=== PATIENT | female | born 1955 | race Two or more races ===

== ENCOUNTER 2025-04-04 12:19 | Emergency (ER) | payer OTHER ==
[~2025-04-04] VITALS: Ht 157.5 cm; Wt 74.9 kg
--- NOTE | 2025-04-04 13:48 | ED.PDOC ---
HPI (NEURO) HPI Comments HPI: This is a 69 year old female presenting to the ED with chief complaint of headache. Patient reports that she has been experiencing a headache with associated facial warmth, memory loss, and difficulty thinking for he past week, worsening over the past 2 days. Patient relays that she was seen in [facility] today for a suspected UTI, but it was ruled out and she was advised to come into the ED due to the symptoms she had been describing. Patient notes she drover herself to the ED today, however, the last 2 days she has been running stop signs and getting lost while on the road. Patient denies any chest pain, SOB, dizziness, N/V, ear pain, or syncope. Past Medical History: Thyroid Disease, HTN, HLD, Primary Aldosteronism, Ascending Aortic Aneurysm Past Surgical History: Denies Social History: Denies smoking, drinking, or drug use. Medications: Reviewed. Allergies: Amitriptyline, Hydroxyzine, NSAIDs, Naproxen. HPI: Poor Historian. REVIEW OF SYSTEMS: CONSTITUTIONAL: Denies acute: fever, diaphoresis, chills, HEAD: Denies acute: headache, photophobia Eyes: Denies acute: Double vision, vision loss, eye pain, eye discharge. EARS: Denies acute: tinnitus, hearing loss, ear discharge, ear pain, THROAT: Denies acute: sore throat, swelling, difficulty swallowing , pain with swallowing, change in voice. NECK: Denies acute: neck pain, neck swelling, stiff neck. HEART: Denies acute : chest pain, palpitations, LUNGS: Denies acute: SOB, wheezing, cough, hemoptysis ABDOMEN: Denies acute: abdominal pain, Nausea, Vomiting, diarrhea, melena , hematemesis, hematochezia SKIN: Denies acute: rash, redness, lesions, itchiness. EXTREMITIES: Denies acute: calf pain, numbness, tingling, weakness, denies pain in extremity. Denies acute: Low back pain. Neuro: Denies acute: focal neurological deficit, motor or sensory focal neurological deficit, tremors, seizure like activity, confusion, dizziness, change in mental status, loss of bowel or bladder function, cauda equina like symptoms. : Denies acute: dysuria, hematuria, flank pain, increase in urinary frequency. PSYCH: Denies acute: hallucination, suicidal ideation, homicidal ideation. FEMALE: Denies acute: abnormal vaginal bleeding, foul odor, unusual discharge. PHYSICAL EXAM: General: -----no---acute distress, awake and alert. Head: normocephalic, atraumatic. No raccoon's eyes, no malone sign. Neck: supple, trachea is midline, no swelling. Throat: Normal phonation. Eyes:, no erythema, no purulent discharge, no proptosis, no icterus. Heart: regular rate, regular rhythm, no significant murmur appreciated. Lungs: no apparent respiratory distress, Able to speak in full sentences. No wheezing, no rhonchi, no crackles. No stridors Clear to auscultation bilaterally. Abdomen: non tender to palpation, non distended, soft, no guarding, no rebound, + bowel sounds. Neuro: Awake, Alert, oriented to name, self, situation, follows commands GCS=15. Speech is normal. Skin: no petechia, no purpura, no cyanosis, non-pale, not jaundice. Lower extremities: --no - Pitting edema no deformity, no focal swelling, no calf TTP. Makes eye contact. moves all four extremities. Face: no apparent facial droop. Ambulating in the ED independently. Stroke: finger to nose cerebellar testing is intact. No pronator drift. Symmetrical supervisor gluing muscle strength b/l PERRLA, EOM-I CN 2-12 are grossly intact, No nystagmus. No nuchal rigidity, Kernig's sign, Brudzinski's sign, no meningeal signs. ED COURSE: DISCLAIMER: This medical document was created using an electronic medical record system with voice recognition software and computerized dictation system. Although this document has been carefully reviewed, there might still be some phonetic and typographical errors. Occasional wrong-word or "sound-alike" substitutions may have occurred due to the inherent limitations of voice recognition software. These areas are purely typographical due to imperfections of the software programs and do not reflect any compromise in the patient's medical care. Please read the chart carefully and recognize, using context, where these substitutions have occurred. Chief Complaint: Headache Time Seen by MD: 13:43 Reviewed Notes: Medications, Allergies Information Source: Patient Mode of Arrival: Ambulatory Was a procedure done? Was a procedure done?: No Differential Diagnosis (SZ) CVA: Other (DDX include CVA, intracranial bleed/ischemia/infarct/infection/mass, carotid stenosis, vertebral/carotid artery dissection, radiculopathy, vertebrobasillary insufficiency, BPV, encephalopathy, temporal arteritis, electrolyte abnormality, thyroid disease, pseudotumor cerebri, hydrocephalus, Valencia palsy, multiple sclerosis, hypoglycemia, drug toxicity, cardiac arrhythmia. cauda equina syndrome, t ransverse myelitis.) Headache: Other (DDX include Sinusitis, migraine, meningitis, hypertension, intracranial mass/bleed, stroke, radiculopathy, vertebrobasillary insufficiency, cephalgia, pseudotumor cerebri, cerebellar ischemia/infarct, carotid stenosis, lacunar infarct, vertebral/carotid artery dissection, hydrocephalus, temporal arteritis, dura venous sinus thrombosis.) X-Ray, Labs, Meds, VS Vital Signs Date Time Temp Pulse Resp B/P (MAP) Pulse Ox O2 Delivery O2 Flow Rate FiO2 04/04/25 19:37 98.4 87 18 144/91 (108) 93 98.4 04/04/25 17:38 98.7 92 16 156/80 (105) 95 98.7 04/04/25 12:23 97.7 78 18 137/84 96 97.7 Lab Test 04/04/25 15:30 04/04/25 14:01 Range/Units Urine Color Light-yellow Yellow Urine Clarity Clear Clear Urine pH 6.0 5.0-9.0 Urine Specific [place] 1.023 1.001-1.035 Urine Protein Negative Negative Urine Ketones Negative Negative Urine Blood 1+ H Negative /uL Urine Nitrite Negative Negative Urine Bilirubin Negative Negative Urine Urobilinogen Normal Negative mg/dL Urine Leukocyte Esterase Negative Negative /uL Urine RBC 5 0 - 4 /hpf Urine Microscopic WBC 1 0-5 /HPF Urine Squamous Epithelial Cells Few <5 /hpf Urine Bacteria None seen None Seen /hpf Urine Glucose Normal Normal mg/dL White Blood Count 3.0 L 4.4-10.8 10^3/uL Red Blood Count 3.22 L 4.0-5.20 10^6/uL Hemoglobin 12.2 12.2-16.2 g/dL Hematocrit 35.2 L 36.0-46.0 % Mean Corpuscular Volume 109.2 H 80.0-100.0 fL Mean Corpuscular Hemoglobin 37.9 H 28.0-32.0 pg Mean Corpuscular Hemoglobin Concent 34.7 32.0-36.0 g/dL Red Cell Distribution Width 18.4 H 11.8-14.3 % Platelet Count 328 140-450 10^3/uL Mean Platelet Volume 6.8 L 6.9-10.8 fL Neutrophils (%) (Auto) 54.8 37.0-80.0 % Lymphocytes (%) (Auto) 35.2 10.0-50.0 % Monocytes (%) (Auto) 6.3 0.0-12.0 % Eosinophils (%) (Auto) 2.9 0.0-7.0 % Basophils (%) (Auto) 0.8 0.0-2.0 % Neutrophils # (Auto) 1.6 1.6-8.6 10 ^3/uL Lymphocytes # (Auto) 1.1 0.4-5.4 10 ^3/uL Monocytes # (Auto) 0.2 0-1.3 10 ^3/uL Eosinophils # (Auto) 0.1 0-0.8 10 ^3/uL Basophils # (Auto) 0 0-0.2 10 ^3/uL Nucleated Red Blood Cells 0.1 % Sodium Level 144 136-145 mmol/L Potassium Level 3.7 3.5-5.1 mmol/L Chloride Level 107 98-107 mmol/L Carbon Dioxide Level 24 20-31 mmol/L Anion Gap 13 5-15 Blood Urea Nitrogen 19 9-23 mg/dL Creatinine 0.81 0.550-1.02 mg/dL Glomerular Filtration Rate Calc 79 >90 mL/min BUN/Creatinine Ratio 23.5 H 10.0-20.0 Serum Glucose 97 74-106 mg/dL Calcium Level 9.4 8.7-10.4 mg/dL Total Bilirubin 1.3 H 0.2-1.0 mg/dL Aspartate Amino Transferase (AST) 131 H 13-40 U/L Alanine Aminotransferase (ALT) 138 H 7-40 U/L Alkaline Phosphatase 49 46-116 U/L Troponin I High Sensitivity 7 </=34 ng/L Total Protein 7.1 5.7-8.2 g/dL Albumin 4.4 3.2-4.8 g/dL [facility] [id number] [facility] [address] Ph: [phone] DIAGNOSTIC IMAGING Diagnostic Imaging Report : [id number] Signed PATIENT: CHRISTEN YOU ACCT: [id number] UNIT: [id number] : 1955 LOC: ER ROOM / BED: / AGE / SEX: 69 / F ADM STATUS: REG ER SERVICE 1328 ORDERING PHYSICIAN: PRISCILA PETERSON DO PROCEDURE(s): [place] - ANGIO HEAD/Neck REASON: neuro complaints ORDER NUMBER(s): [id number], ACCESSION NUMBER(s): [id number] ANGIO HEAD/NECK INDICATION: neuro complaints TECHNIQUE: Volumetric multi-detector CT images of the head were obtained without administration of IV contrast.. CT angiography along with MIP and MPR images were obtained of the [place] of [place] arteries. CT angiography along with MIP and MPR images were obtained of the cervical carotid and vertebral arteries. All CT scans at this facility use dose modulation, iterative reconstruction, and/or weight based dosing when appropriate to reduce radiation dose to as low as reasonably achievable. 3-D postprocessing was performed on a separate workstation under radiologist supervision. IV CONTRAST: 100 mL of low osmolar intravenous iodinated contrast material was administered. COMPARISON: None FINDINGS: CT HEAD: Parenchyma: No acute hemorrhage. There is no mass effect, midline shift, or herniation. There is preservation of the bet[place]ourt white differentiation. Ventricles: There is no hydrocephalus. Extra-axial spaces: There are no extra-axial fluid collections. Other: The bony structures are intact. Mucous retention cysts in the right inferior maxillary sinus. ANTERIOR CIRCULATION: Distal internal carotid arteries including the petrous, cavernous, and supraclinoid segments are patent bilaterally. Anterior cerebral arteries including the A1 and A2 segments are patent bilaterally. Anterior communicating artery patent without aneurysm formation. Middle cerebral arteries including the horizontal M1 and sylvian M2 are patent bilaterally. Congenitally absent versus hypoplastic posterior communicating arteries. POSTERIOR CIRCULATION: Posterior cerebral arteries are patent bilaterally. Vertebral arteries are codominant The intracranial segments of the vertebral arteries are patent bilaterally. The basilar artery is patent without aneurysm formation. The posterior inferior cerebellar arteries are patent bilaterally. CERVICAL VESSELS: Bovine arch. No evidence of aortic dissection. Retropharyngeal course of bilateral internal carotid arteries. Prominent caliber of bilateral internal carotid arteries with multifocal short-segment areas of enlargement with possible beaded appearance best appreciated on coronal plane correlate for sequelae of hypertension however underlying vasculitis not excluded. Not typical beaded appearance and therefore predominantly favor sequelae of hypertension The right common carotid artery, carotid bulb, and cervical segment of the right internal carotid artery are patent The left common carotid artery, carotid bulb, and cervical segment of the left internal carotid artery are patent The cervical segments of the vertebral arteries are patent OTHER: The lung apices are clear. Mild mucosal thickening of the inferior aspect of the right maxillary sinus. IMPRESSION: 1. No large vessel occlusion, aneurysmal dilatation, or dissection seen within the intracranial or cervical vessels. 2. Retropharyngeal course of bilateral internal carotid arteries. Prominent caliber of bilateral internal carotid arteries with multifocal short-segment areas of enlargement with possible beaded appearance best appreciated on coronal plane correlate for sequelae of hypertension however underlying vasculitis not excluded. ATED BY: AYAZ FLEMING MD DICTATED DATE/TIME: 04/04/251552 SIGNED BY: AYAZ FLEMING MD SIGNED DATE/TIME: 04/04/251552 CC: X-Ray, Labs, Meds, VS Comment CT Angio Head/Neck: Impression: No large vessel occlusion, aneurysmal dilatation or dissection seen within the intracranial or cervical vessels. . Time of 1ST Reevaluation: 14:43 Reevaluation 1ST: Unchanged Time of 2ND Reevaluation: 17:18 (The case was discussed with the [place] admitting team (HPI, physical exam, labs and diagnostic tests that were available at the time of disposition, ED course, treatment plan) on the phone. They agreed to transfer the patient to their service by ALS for further evaluation and treatment. Dr. KAUFFMAN Authorization number is--[id number]) Reevaluation 2ND: Unchanged Patient Education/Counseling: Diagnosis, Treatment Family Education/Counseling: No Family Present Comments MDM: patient presented with the above HPI.---neurological complaints---workup was initiated. patient was found with the above mentioned diagnosis. the following medications were ordered: please refer to order lists of meds and tests obtained by myself Dr. Peterson. Patient ED course and VS have been stabilized. Patient has been reassessed in the ED and remained in a stable condition. Pertinent incidental findings were discussed with the patient and/or family. Patient/family voices understanding and is agreeable with plan. Patient has been observed in the ED adequate length of time to insure improvement/stability. Escalation of care considered: Consideration of escalation to observation or admission Labs and CT scan of the head were obtained. Patient was transferred to [facility] to the medicine team for further eval uation and treatment of their presentation. All the reports of any imaging studies that were ordered by myself were reviewed by myself. Departure 1 Departure Time of Disposition: 16:26 Impression: Primary Impression: Neurological complaint Additional Impression: Elevated LFTs Disposition: 02 SHORT TERM HOSPITAL Admit to: [facility] Condition: Guarded Discharged With: Self Critical Care Note Critical Care Time?: No Heart Score Heart Score: Heart Score Response (Comments) Value History N/A 0 EKG N/A 0 Age N/A 0 Risk Factors N/A 0 Troponin N/A 0 Total 0 I personally scribed for PRISCILA PETERSON DO ([email or web address]) on 04/04/25 at 13:48. Electronically submitted by Xu Douglass ([email or web address]). I personally scribed for PRISCILA PETERSON DO ([email or web address]) on 04/04/25 at 17:27. Electronically submitted by Xu Douglass ([email or web address]). I personally scribed for PRISCILA PETERSON DO ([email or web address]) on 04/04/25 at 21:44. Electronically submitted by Carrie Franco ([email or web address]). PRISCILA PETERSON DO Apr 04, 2025 13:48
[2025-04-04 14:15] LABS: Hematocrit 35.2 % (36.0-46.0); Hemoglobin 12.2 g/dL (12.2-16.2); Mean Corpuscular Hemoglobin 37.9 pg (28.0-32.0); Mean Corpuscular Volume 109.2 fL (80.0-100.0); Nucleated Red Blood Cells % 0.1 %
[2025-04-04 14:33] LABS: Albumin 4.4 g/dL (3.2-4.8); Alkaline Phosphatase 49 U/L (46-116); Anion Gap 13 (5-15); BUN/Creatinine Ratio 23.5 (10.0-20.0); Blood Urea Nitrogen 19 mg/dL (9-23); Calcium 9.4 mg/dL (8.7-10.4); Carbon Dioxide 24 mmol/L (20-31); Chloride 107 mmol/L (98-107); Glucose 97 mg/dL (74-106); Potassium 3.7 mmol/L (3.5-5.1); Sodium 144 mmol/L (136-145); Total Protein 7.1 g/dL (5.7-8.2)
[2025-04-04 14:55] LABS: Alanine Aminotransferase 138 U/L (7-40); Bilirubin, Total 1.3 mg/dL (0.2-1.0)
[2025-04-04] MEDS: IOHEXOL 350 MG/ML 100ML IJ ONE (15:02)
[2025-04-04 15:48] LABS: Urine Protein, UAD Negative (Negative)
--- NOTE | 2025-04-04 17:52 | DVH ---
ANGIO HEAD/NECK INDICATION: neuro complaints TECHNIQUE: Volumetric multi-detector CT images of the head were obtained without administration of IV contrast.. CT angiography along with MIP and MPR images were obtained of the [place] of [place] arteries. CT angiography along with MIP and MPR images were obtained of the cervical carotid and vertebral arteries. All CT scans at this facility use dose modulation, iterative reconstruction, and/or weight based dosing when appropriate to reduce radiation dose to as low as reasonably achievable. 3-D postprocessing was performed on a separate workstation under radiologist supervision. IV CONTRAST: 100 mL of low osmolar intravenous iodinated contrast material was administered. COMPARISON: None FINDINGS: CT HEAD: Parenchyma: No acute hemorrhage. There is no mass effect, midline shift, or herniation. There is preservation of the betancourt white differentiation. Ventricles: There is no hydrocephalus. Extra-axial spaces: There are no extra-axial fluid collections. Other: The bony structures are intact. Mucous retention cysts in the right inferior maxillary sinus. ANTERIOR CIRCULATION: Distal internal carotid arteries including the petrous, cavernous, and supraclinoid segments are patent bilaterally. Anterior cerebral arteries including the A1 and A2 segments are patent bilaterally. Anterior communicating artery patent without aneurysm formation. Middle cerebral arteries including the horizontal M1 and sylvian M2 are patent bilaterally. Congenitally absent versus hypoplastic posterior communicating arteries. POSTERIOR CIRCULATION: Posterior cerebral arteries are patent bilaterally. Vertebral arteries are codominant The intracranial segments of the vertebral arteries are patent bilaterally. The basilar artery is patent without aneurysm formation. The posterior inferior cerebellar arteries are patent bilaterally. CERVICAL VESSELS: Bovine arch. No evidence of aortic dissection. Retropharyngeal course of bilateral internal carotid arteries. Prominent caliber of bilateral internal carotid arteries with multifocal short-segment areas of enlargement with possible beaded appearance best appreciated on coronal plane correlate for sequelae of hypertension however underlying vasculitis not excluded. Not typical beaded appearance and therefore predominantly favor sequelae of hypertension The right common carotid artery, carotid bulb, and cervical segment of the right internal carotid artery are patent The left common carotid artery, carotid bulb, and cervical segment of the left internal carotid artery are patent The cervical segments of the vertebral arteries are patent OTHER: The lung apices are clear. Mild mucosal thickening of the inferior aspect of the right maxillary sinus. IMPRESSION: 1. No large vessel occlusion, aneurysmal dilatation, or dissection seen within the intracranial or cervical vessels. 2. Retropharyngeal course of bilateral internal carotid arteries. Prominent caliber of bilateral internal carotid arteries with multifocal short-segment areas of enlargement with possible beaded appearance best appreciated on coronal plane correlate for sequelae of hypertension however underlying vasculitis not excluded.
[2025-04-04 19:37] VITALS: BP 144/91; PULSE 87; RESP 18; TEMP 98.4; O2SAT 93
== END 2025-04-04 19:37 | disposition short-term general hospital (02) ==
LOC: ER 12:19
DX: R29.818 Other symptoms and signs involving the nervous system (principal); R79.89 Other specified abnormal findings of blood chemistry; I10 Essential (primary) hypertension; E78.5 Hyperlipidemia, unspecified; Z88.6 Allergy status to analgesic agent
CPT/HCPCS: 36415; 70496; 70498; 80053; 81001; 84484; 85025; 99285; Q9967